=== PATIENT | male | born 1965 | race Caucasian/White ===

== ENCOUNTER 2023-04-02 23:42 | Emergency (ER) | payer BC, SELFPAY ==
[2023-04-02 23:46] VITALS: BP 118/82; PULSE 76; RESP 22; TEMP 36.2; O2SAT 97; BMI 29.2
--- NOTE | 2023-04-03 00:18 | ED.NURSE ---
patient states he does not want a chest xray- MD updated, xray canceled.
[2023-04-03] MEDS: ALBUTEROL SULFATE 2.5 MG/3 ML VIAL.NEB NEB (00:19)
--- NOTE | 2023-04-03 00:29 | ED_ITS ---
HPI - General Adult General Date Seen: 04/03/23 Chief complaint: Cough Stated complaint: Cough Time Seen by Provider: 04/02/23 23:56 Source: patient Mode of arrival: ambulatory Limitations: no limitations History of Present Illness HPI narrative: Patient is a 57-year-old male with no pertinent medical problems who is not currently on any medication presenting to emergency department for a cough. He states he was having viral symptoms about a week ago And that is when his cough first started. he noticed today his cough was worse and he had about 3 or 4 episodes was coughing so much she could not catch his breath and he became dizzy. He currently is asymptomatic other than the cough. Denies chest pain, fevers, chills, shortness of breath, weakness, numbness, lightheadedness, abd ominal pain. Is not aware of any sick contacts. states he has had bronchitis in the past and pneumonia but this does not feel like either of those. States his only concern at this time is the cough. Related Data Previous Rx's Medication Instructions Recorded albuterol sulfate 90 mcg/actuation 1 puff inhalation QID PRN 04/03/23 aerosol inhaler shortness of breath or wheezing #8.5 grams dextromethorphan-guaifenesin 5 10 ml PO Q4-8H PRN cough #118 mL 04/03/23 mg-100 mg/5 mL oral liquid Allergies Allergy/AdvReac Type Severity Reaction Status Date / Time No Known Drug Allergies Allergy Verified 04/02/23 23:46 Review of Systems Status of ROS: Reports: 10 or more systems reviewed and unremarkable except as noted in History and below PFSH PFSH Social History Smoking Status: Never smoker Exam Narrative: Exam Narrative: Const: Well-nourished, Well-developed, in no distress other than occasional coughing fit Eyes: PERRL, no conjunctival injection, and symmetrical lids HENT: Atraumatic external nose and ears. Moist mucous membranes. Neck: Symmetric, trachea midline, No thyromegaly. CVS: RRR, No murmurs or gallops. Peripheral pulses 2+ and equal in all extremities RESP: Unlabored respiratory effort. Clear to auscultation bilaterally. GI: Nontender/Nondistended, No rebound or guarding. MSK:Extremities w/o deformity, Normal Active ROM Skin: Warm, Dry. No rashes or lesions. Neuro: Normal Muscle tone, No focal neurological deficits. Psych: Awake, Alert, & Oriented x3. Appropriate mood and affect. Const: Vital Signs, click to edit/add: Vital Signs - 24 hr 04/02/23 23:46 Temperature 97.1 F L Pulse Rate [Pulse Oximeter] 76 Respiratory Rate 22 Blood Pressure [Ri ght Upper Arm] 118/82 Pulse Oximetry 97 Oxygen Delivery Me thod Room Air Course Vital Signs Vital signs: Initial Vital Signs Temperature 97.1 F L 04/02/23 23:46 Temperature Source Temporal Artery Scan 04/02/23 23:46 Pulse Rate 76 04/02/23 23:46 Pulse Rhythm Regular 04/02/23 23:46 Respiratory Rate 22 04/02/23 23:46 Blood Pressure 118/82 04/02/23 23:46 Blood Pressure Mean 94 04/02/23 23:46 Blood Pressure Position Sitting 04/02/23 23:46 Pulse Oximetry 97 04/02/23 23:46 Oxygen Delivery Method Room Air 04/02/23 23:46 Vital Signs Temperature 97.1 F L 04/02/23 23:46 Pulse Rate 76 04/02/23 23:46 Respiratory Rate 22 04/02/23 23:46 Blood Pressure 118/82 04/02/23 23:46 Pulse Oximetry 97 04/02/23 23:46 Oxygen Delivery Method Room Air 04/02/23 23:46 Temperature 97.1 F L 04/02/23 23:46 Pulse Rate 76 04/02/23 23:46 Respiratory Rate 22 04/02/23 23:46 Blood Pressure 118/82 04/02/23 23:46 Pulse Oximetry 97 04/02/23 23:46 Oxygen Delivery Method Room Air 04/02/23 23:46 Medications Administered Medications: Generic Name Dose Route Start Last Admin Trade Name Freq PRN Reason Stop Dose Admin Albuterol 2.5 mg 04/03/23 00:10 04/03/23 00:19 Albuterol Sulfate 2.5 Mg/3 Ml Vial.Neb NEB 04/03/23 00:11 2.5 mg ONCE ONE Administration Medical Decision Making MDM Narrative Medical decision making narrative: patient is a 57-year-old male presenting for cough. He is otherwise asymptomatic. He did have our symptoms a week ago and is likely a residual cough from the virus. Is not coughing up any phlegm is not any medications. I did offer him an x-ray check for signs of pneumonia or bronchitis but he refused. He is being COVID/flu/RSV swab. Albuterol was given see what helps with this cough. He was feeling better after the albuterol. Patient COVID/flu/ RSV test were negative. At this time and not feel strongly that this is pneumonia or any other concerning disorder. This is most likely just at the LD from his viral infection. He will be discharged home. Lab Data Labs: Lab Results 04/02/23 Range/Units 23:50 SARS-CoV-2 (PCR) Negative SARS-CoV-2 (Negative) Influenza Type A (PCR) Negative PCR FLU A (Negative) Influenza Type B (PCR) Negative PCR FLU B (Negative) RSV (PCR) Negative PCR RSV (Negative) Discharge Plan Discharge Clinical Impression: Cough Qualifiers: Cough type: acute Qualified Code(s): R05.1 - Acute cough Patient Disposition: Home, Self-Care Condition: Stable Instructions: Acute Cough (ED) Additional Instructions: use the butyrate inhalers as directed. Also take the cough medicine. Return for new worsening symptoms Prescriptions: New albuterol sulfate 90 mcg/actuation HFA aerosol inhaler 1 puff inhalation QID PRN (Reason: shortness of breath or wheezing) Qty: 8.5 0RF dextromethorphan-guaifenesin 5-100 mg/5 mL liquid 10 ml PO Q4-8H PRN (Reason: cough) Qty: 118 0RF Stand Alone Forms: 37mhealthth Info Instructions
[2023-04-03 00:32] LABS: PCR FLU A Negative PCR FLU A (Negative); PCR FLU B Negative PCR FLU B (Negative); PCR RSV Negative PCR RSV (Negative); SARS PCR* Negative SARS-CoV-2 (Negative)
[2023-04-03 01:01] VITALS: PULSE 81; RESP 16; O2SAT 98
== END 2023-04-03 01:01 | disposition home or self-care (01) ==
PROVIDERS: Emergency Provider Student in an Organized Health Care Education/Training Program
DX: R05.1 Acute cough (principal)
CPT/HCPCS: 87631; 94640; 99282; 99283